=== PATIENT | female | born 1960 | race Caucasian/White ===

== ENCOUNTER 2022-05-19 13:28 | Inpatient (IN) | payer MEDICARE ==
[2022-05-19] MEDS ORDERED: NOREPINEPHRINE 8 MG/250 ML-D5W 250 ML ONE (13:34)
[2022-05-19] MEDS ORDERED: EPINEPHrine 1 MG/10 ML Abboject SYRINGE ONE ×2 (13:51→13:53)
[2022-05-19] MEDS ORDERED: EPINEPHrine 1 MG/ML VIAL ONE (13:55)
[2022-05-19 15:22] LABS: Troponin I 0.142 ng/mL (< 0.028)
[2022-05-19 15:28] LABS: Actual Bicarbonate (HCO3a) 35.3 mEq/L (22-28); Analyzer IN Cardio ER; Base Excess (BEa) 1.2 mEq/L (-2.0 to +3.0); Calcium, Ionized (arterial) 1.22 mmol/L (1.12-1.30); Carboxyhemoglobin (COHb) 0.3 gm% (0.0-3.0); Hemoglobin (Hb) 12.3 g/dL (12.0-16.0); O2 Tension (PaO2), arterial 150.3 mmHg (> 80.0); Potassium - ABG Lab 5.09 mmol/L (3.70-5.30)
[2022-05-19 15:29] LABS: Puncture Site LRA; pH, Arterial 7.04 (7.35-7.45)
[2022-05-19] MEDS ORDERED: Acetaminophen 325 MG TAB PO PRN (15:33)
[2022-05-19] MEDS ORDERED: Bisacodyl 5 MG TAB PO PRN (15:33)
[2022-05-19] MEDS ORDERED: Vancomycin 1 GM in Premix Bag 1 BAG IVPB SCH (16:46)
[2022-05-19] MEDS ORDERED: VANCOMYCIN IVPB PRN (16:46)
[2022-05-19] MEDS ORDERED: ABX IVPB PRN (16:46)
[2022-05-19] MEDS: NOREPINEPHRINE 8 MG/250 ML-D5W 250 ML IVPB PRN ×2 (17:27→21:19)
[2022-05-19] MEDS: methylPREDNISolone Sod Succ 40 MG VIAL IVP SCH (17:27)
[2022-05-19 17:32] VITALS: BMI 27.9
[2022-05-19 17:54] LABS: Troponin I 0.201 ng/mL (< 0.028)
[2022-05-19] MEDS ORDERED: Aspirin 325 MG TAB PO SCH (18:30)
[2022-05-19] MEDS ORDERED: EPINEPHrine 4 MG in Dextrose 5% in Water 250 ML IV SCH (18:30)
[2022-05-19] MEDS ORDERED: Vancomycin 1.5 GRAM/300 ML BAG 1.5 GM in Premix Bag 1 BAG IVPB SCH (18:45)
[2022-05-19] MEDS ORDERED: Prevnar 13-Val Conj/PF 0.5 ML SYRINGE IM ONE (19:00)
[2022-05-19] MEDS: Cefepime 2 GM in Sodium Chloride 0.9% 100 ML IVPB SCH (20:38)
[2022-05-19] MEDS ORDERED: Dextrose 5% in Water 1,000 ML IV PRN (20:44)
[2022-05-19] MEDS ORDERED: Dextrose 50% Abboject 50 ML SYRINGE SLOW IVP PRN (20:44)
[2022-05-19 21:04] LABS: Actual Bicarbonate (HCO3a) 28.9 mEq/L (22-28); Base Excess (BEa) -2.2 mEq/L (-2.0 to +3.0); Calcium, Ionized (arterial) 1.27 mmol/L (1.12-1.30); Carboxyhemoglobin (COHb) 0.3 gm% (0.0-3.0); Hemoglobin (Hb) 12.5 g/dL (12.0-16.0); O2 Tension (PaO2), arterial 102.2 mmHg (> 80.0); Potassium - ABG Lab 4.84 mmol/L (3.70-5.30)
[2022-05-19 21:11] LABS: CO2 Tension 87.2 mmHg (35.0-45.0); Puncture Site R RADIAL; pH, Arterial 7.14 (7.35-7.45)
[2022-05-19 21:39] LABS: Lactic Acid 4.4 mmol/L (0.5-2.2)
[2022-05-19] MEDS ORDERED: HumaLOG 300 UNITS/3 ML VIAL SC PRN (21:41)
[2022-05-19] MEDS ORDERED: Sodium Chloride 0.9% 1,000 ML IV SCH (21:45)
[2022-05-19] MEDS ORDERED: Electrolyte Replacement Protocol 1 EACH FS SCH (21:45)
[2022-05-20] MEDS: methylPREDNISolone Sod Succ 40 MG VIAL IVP SCH ×4 (00:06→18:00)
[2022-05-20 04:09] LABS: #Lymphocytes 1.1 thou/uL (1.20-3.40); #Monocytes 1.1 thou/uL (0.11-0.59); #Neutrophils 14.6 thou/uL (1.40-6.50); %Eosinophils 0.1 % (0.0-10.0); %Lymphocytes 6.6 % (21.0-51.0); %Monocytes 6.5 % (0.0-10.0); %Neutrophils 86.7 % (42.0-75.0); Hemoglobin 11.6 g/dL (12.0-16.0); Mean Corpuscular HGB CONC 29.6 g/dL (32.0-36.0); Mean Corpuscular Hemoglobin 28.7 pg (27.0-31.0); Mean Corpuscular Volume 96.8 fl (78.0-98.0); Mean Platelet Volume 7.4 fL (7.4-10.4); Platelet Count 466 10x3/uL (130-400); RBC Distribution Width 16.2 % (11.5-14.5); Red Blood Cell (RBC) Count 4.04 mill/uL (4.20-5.40); White Blood Cell (WBC) Count 16.9 10x3/uL (4.8-10.8)
[2022-05-20 04:15] LABS: Lactic Acid 3.5 mmol/L (0.5-2.2)
[2022-05-20 04:28] LABS: ALT (SGPT) 10 U/L (8-55); AST (SGOT) 24 U/L (5-34); Alkaline Phosphatase 133 U/L (40-110); Anion Gap 17 mmol/L (10-20); BUN (Urea Nitrogen) 27 mg/dL (9.8-20.1); Bilirubin, Total 0.2 mg/dL (0.2-1.2); Calc. Creatinine Clearance 90 mL/min (70-130); Calcium 8.9 mg/dL (7.8-10.44); Carbon Dioxide 24 mmol/L (23-31); Chloride 102 mmol/L (98-107); Estimated GFR 92; Globulin 2.3 g/dL (2.4-3.5); Glucose 177 mg/dL (80-115); Potassium 5.3 mmol/L (3.5-5.1); Protein, Total 5.3 g/dL (5.8-8.1); Sodium 138 mmol/L (136-145)
[2022-05-20] MEDS ORDERED: Pantoprazole 40 MG VIAL IVP SCH (09:00)
[2022-05-20] MEDS: Enoxaparin Sodium 40 MG/0.4 ML SYRINGE SC SCH (09:48)
[2022-05-20] MEDS: Aspirin 81 mg Enteric Coated Tablet PER TUBE SCH (09:48)
[2022-05-20] MEDS: Pantoprazole 40 MG VIAL IVP SCH (09:48)
[2022-05-20] MEDS: NOREPINEPHRINE 8 MG/250 ML-D5W 250 ML IVPB PRN ×2 (09:48→20:49)
[2022-05-20] MEDS: Cefepime 2 GM in Sodium Chloride 0.9% 100 ML IVPB SCH ×2 (09:49→22:05)
[2022-05-20] MEDS: HumaLOG 300 UNITS/3 ML VIAL SC PRN ×2 (11:15→16:51)
[2022-05-20] MEDS: Vancomycin 1 GM in Premix Bag 1 BAG IVPB SCH ×2 (11:34→20:50)
[2022-05-20] MEDS ORDERED: Lactated Ringer's 500 ML IV SCH (12:15)
[2022-05-20] MEDS ORDERED: Morphine 4 MG/ML VIAL SLOW IVP PRN (12:46)
[2022-05-21] MEDS: NOREPINEPHRINE 8 MG/250 ML-D5W 250 ML IVPB PRN ×2 (02:25→10:52)
[2022-05-21] MEDS: methylPREDNISolone Sod Succ 40 MG VIAL IVP SCH ×4 (05:34→17:56)
[2022-05-21 07:33] LABS: Hemoglobin 10.6 g/dL (12.0-16.0); Mean Corpuscular HGB CONC 29.2 g/dL (32.0-36.0); Mean Corpuscular Hemoglobin 28.6 pg (27.0-31.0); Mean Corpuscular Volume 98.2 fl (78.0-98.0); Mean Platelet Volume 7.4 fL (7.4-10.4); Platelet Count 371 10x3/uL (130-400); RBC Distribution Width 15.9 % (11.5-14.5); Red Blood Cell (RBC) Count 3.69 mill/uL (4.20-5.40); White Blood Cell (WBC) Count 19.3 10x3/uL (4.8-10.8)
[2022-05-21 07:49] LABS: ALT (SGPT) 35 U/L (8-55); AST (SGOT) 69 U/L (5-34); Albumin 3.1 g/dL (3.4-4.8); Alkaline Phosphatase 119 U/L (40-110); Anion Gap 16 mmol/L (10-20); BUN (Urea Nitrogen) 39 mg/dL (9.8-20.1); Bilirubin, Total 0.2 mg/dL (0.2-1.2); Calc. Creatinine Clearance 82 mL/min (70-130); Calcium 9.3 mg/dL (7.8-10.44); Carbon Dioxide 30 mmol/L (23-31); Chloride 99 mmol/L (98-107); Estimated GFR 78; Globulin 2.2 g/dL (2.4-3.5); Glucose 148 mg/dL (80-115); Potassium 5.6 mmol/L (3.5-5.1); Protein, Total 5.3 g/dL (5.8-8.1); Sodium 139 mmol/L (136-145)
[2022-05-21 07:53] LABS: Vancomycin, Trough 34.4 ug/mL
[2022-05-21 08:13] VITALS: TEMP 97.4
[2022-05-21] MEDS ORDERED: Vancomycin HCl 500 MG in Sodium Chloride 0.9% 100 ML IVPB SCH (08:15)
[2022-05-21 09:21] LABS: Band 5 % (5-11); Lymphocytes 1 % (21-51); MDiff Complete? YES; Monocytes 10 % (0-10); Neutrophil 83 % (42-75); Platelet Morphology Comment Appears Adequate; Polychromasia SLIGHT = 2-3 cells (100X) (0-2/hpf); Reactive Lymphocytes 1 % (0-10)
[2022-05-21] MEDS: Vancomycin 1 GM in Premix Bag 1 BAG IVPB SCH (10:52)
[2022-05-21] MEDS: Cefepime 2 GM in Sodium Chloride 0.9% 100 ML IVPB SCH (10:52)
[2022-05-21] MEDS: Aspirin 81 mg Enteric Coated Tablet PER TUBE SCH (10:53)
[2022-05-21] MEDS: Pantoprazole 40 MG VIAL IVP SCH (10:53)
[2022-05-21] MEDS: Enoxaparin Sodium 40 MG/0.4 ML SYRINGE SC SCH (10:53)
[2022-05-21] MEDS ORDERED: Calcium Gluc 4.6 MEQ/10 ML (100 MG/ML) SLOW IVP SCH (12:00)
[2022-05-21] MEDS ORDERED: CALCIUM GLUC 1 GM/NS 50 ML 1 GM in Premix Bag 1 BAG IVPB SCH (12:15)
[2022-05-21 12:20] LABS: Actual Bicarbonate (HCO3v) 34 mEq/L (22-28); Calcium, Ionized (venous) 1.24 mmol/L (1.16-1.32); Chloride (VBG) 98 mmol/L (98-106); Hemoglobin (Hb) 11.3 g/dL (11.7-16.0); Potassium (VBG) 5.49 mmol/L (3.70-5.30); Sodium 134.8 mmol/L (133-146); pH (venous) 7.21 (7.32-7.43)
[2022-05-22] MEDS ORDERED: Aspirin Chewable 81 MG TAB PER TUBE SCH (09:00)
[2022-05-22] MEDS: NOREPINEPHRINE 8 MG/250 ML-D5W 250 ML IVPB PRN (09:08)
== END 2022-05-22 09:39 | disposition hospice, inpatient (51) | DRG 871 ==
LOC: ERS 13:28 → CCU 14:23
PROVIDERS: ADMIT Family Medicine; ATTEND Family Medicine
PROC: 3E043XZ Introduction of Vasopressor into Central Vein, Percutaneous Approach (ICD-10-PCS; principal; 2022-05-19)
PROC: 5A09457 Assistance with Respiratory Ventilation, 24-96 Consecutive Hours, Continuous Positive Airway Pressure (ICD-10-PCS; 2022-05-19)
PROC: 3E04329 Introduction of Other Anti-infective into Central Vein, Percutaneous Approach (ICD-10-PCS; 2022-05-19)
DX: A41.9 Sepsis, unspecified organism (principal); R65.20 Severe sepsis without septic shock; Z66 Do not resuscitate; Z51.5 Encounter for palliative care; G93.41 Metabolic encephalopathy; R57.0 Cardiogenic shock; J96.21 Acute and chronic respiratory failure with hypoxia; J96.22 Acute and chronic respiratory failure with hypercapnia; I21.A1 Myocardial infarction type 2; I42.7 Cardiomyopathy due to drug and external agent; J44.1 Chronic obstructive pulmonary disease with (acute) exacerbation; M84.58XA Pathological fracture in neoplastic disease, other specified site, initial encounter for fracture; C78.01 Secondary malignant neoplasm of right lung; E03.9 Hypothyroidism, unspecified; K21.9 Gastro-esophageal reflux disease without esophagitis; M79.7 Fibromyalgia; I50.9 Heart failure, unspecified; Z90.13 Acquired absence of bilateral breasts and nipples; Z92.3 Personal history of irradiation; Z92.21 Personal history of antineoplastic chemotherapy; T45.1X5S Adverse effect of antineoplastic and immunosuppressive drugs, sequela; Z79.899 Other long term (current) drug therapy; Z87.891 Personal history of nicotine dependence; Z98.890 Other specified postprocedural states; Z90.49 Acquired absence of other specified parts of digestive tract
CPT/HCPCS: 36415; 36416; 36600; 80053; 80202; 82805; 83605; 84145; 84439; 84484; 85025; 93005; 93010; 93306; 94640; 94660; 96374; 96375; 99292; C9113; J0171; J0610; J0692; J1650; J1815; J1956; J2270; J2920; J3370; J3370-JW; J3490; J7050; J7120; J7620

== ENCOUNTER 2022-05-22 09:53 | Inpatient (IN) | payer OTHER ==
[2022-05-22 10:45] VITALS: BMI 29.2
[2022-05-22] MEDS ORDERED: Morphine 4 MG/ML VIAL SLOW IVP PRN (10:47)
[2022-05-22] MEDS: Lorazepam 2 MG/ML VIAL SLOW IVP SCH ×2 (10:59→11:25)
[2022-05-22] MEDS ORDERED: Morphine 4 MG/ML VIAL SLOW IVP SCH (11:00)
[2022-05-22] MEDS: Scopolamine 1.5 mg/72 hour Patch TOP SCH ×2 (11:00→11:25)
== END 2022-05-22 11:10 | disposition expired | DRG 951 ==
LOC: CCU 09:53
PROVIDERS: ADMIT Family Medicine; ATTEND Family Medicine
DX: Z51.5 Encounter for palliative care (principal); J96.21 Acute and chronic respiratory failure with hypoxia; G93.41 Metabolic encephalopathy; I42.7 Cardiomyopathy due to drug and external agent; R57.9 Shock, unspecified; C49.9 Malignant neoplasm of connective and soft tissue, unspecified; M79.7 Fibromyalgia; K21.9 Gastro-esophageal reflux disease without esophagitis; F20.9 Schizophrenia, unspecified; Z66 Do not resuscitate; J44.9 Chronic obstructive pulmonary disease, unspecified; I50.9 Heart failure, unspecified; E03.9 Hypothyroidism, unspecified; Z85.3 Personal history of malignant neoplasm of breast; Z92.21 Personal history of antineoplastic chemotherapy; Z92.3 Personal history of irradiation; Z90.13 Acquired absence of bilateral breasts and nipples; Z87.01 Personal history of pneumonia (recurrent); Z79.899 Other long term (current) drug therapy; Z79.890 Hormone replacement therapy; Z87.891 Personal history of nicotine dependence
CPT/HCPCS: J2060; J2270